=== PATIENT | male | born 1990 | race American Indian/Alaskan Native ===

== ENCOUNTER 2025-09-30 09:45 | Emergency (ER) | payer MEDICAID, SELFPAY ==
[2025-09-30 10:05] VITALS: BP 117/75; PULSE 94; RESP 15; TEMP 37; O2SAT 96; BMI 25.8
--- NOTE | 2025-09-30 10:29 | PD.EDRME ---
Rapid Medical Screening Exam [facility] Arrival date/time: 09/30/25 09:45 This is a 34-year-old male that comes into the emergency room with complaints of vomiting that started this morning. Patient denies abdominal pain diarrhea. Patient denies any past medical history. I have greeted and performed a focused initial assessment of this patient. Initial appropriate labs ordered at this time. A comprehensive ED assessment and evaluation of the patient and analysis of all test and completion of medical decision making process will be conducted by additional ED provider. Chief Complaint: Nausea/Vomiting/Diarrhea Time Seen by Provider: 09/30/25 10:23 Vital signs: Vital Signs Temperature 98.6 F 09/30/25 10:05 Pulse Rate 94 09/30/25 10:05 Respiratory Rate 15 09/30/25 10:05 Blood Pressure 117/75 09/30/25 10:05 Pulse Oximetry (%) 96 09/30/25 10:05 Oxygen Delivery Method Room Air 09/30/25 10:05 Exam: Abdominal pain diffusely breathing even and unlabored skin warm and dry Clinical Impression: Abdominal pain
[2025-09-30] MEDS: ONDANSETRON ODT 4 MG TABRAP PO ×2 (10:56→15:15)
[2025-09-30 10:57] LABS: Basophils # (Auto) 0.0 Thou/mm3 (0.0-0.2); Basophils % (Auto) 1 % (0-2.5); Eosinophils # (Auto) 0.2 Thou/mm3 (0.0-0.5); Eosinophils % (Auto) 4 % (0-10); Hematocrit 43.9 % (41.0-53.0); Hemoglobin 15.3 g/dL (13.5-16.0); Immature Granulocytes Auto 0.05 Thou/mm3 (0.00-0.00); Lymphocytes # (Auto) 1.0 Thou/mm3 (1.0-4.8); Lymphocytes % (Auto) 17 % (10-50); Mean Corpuscular HGB Conc 34.9 g/dl (31.0-37.0); Mean Corpuscular Hemoglobin 29.0 pg (25.0-35.0); Mean Corpuscular Volume 83 fL (80-100); Monocytes # (Auto) 0.4 Thou/mm3 (0.0-0.8); Monocytes % (Auto) 7 % (0-12); Neutrophils # (Auto) 4.1 Thou/mm3 (1.8-7.7); Neutrophils % (Auto) 71 % (37-80); Nucleated Red Blood Cell # 0.00 Thou/mm3 (0.00-0.00); Nucleated Red Blood Cell % 0 /100 WBC (0); Platelet Count 215 Thou/mm3 (140-440); RDW Standard Deviation 37.3 fL (35.1-43.9); Red Blood Count 5.28 Miln/mm3 (4.50-5.90); White Blood Count 5.8 Thou/mm3 (3.8-10.6)
[2025-09-30 11:20] LABS: Alanine Aminotransferase 24 U/L (10-49); Albumin, Serum 5.0 gm/dL (3.5-5.0); Albumin/Globulin Ratio 2.3 (1.2-2.2); Alkaline Phosphatase 87 U/L (46-116); Anion Gap 8 (7-16); Aspartate Amino Transferase 24 U/L (0-34); BUN/Creatinine Ratio 7 Ratio (12-20); Bilirubin,Total 0.5 mg/dL (0.3-1.2); Blood Urea Nitrogen 8 mg/dL (9-23); Calcium 9.4 mg/dL (8.3-10.6); Calcium (Corrected) 9.4 mg/dL (8.5-10.1); Carbon Dioxide 27.7 mMol/L (20.0-31.0); Chloride 105 mMol/L (98-107); Creatinine (Component) 1.1 mg/dL (0.6-1.3); Estimated Creatinine Clearance 92.4 mL/min (>60); Globulin 2.2 gm/dL (2.3-3.5); Glucose 142 mg/dL (74-106); Lipase 25 U/L (12-53); Osmolality,Calculated 281 (275-295); Potassium 3.8 mMol/L (3.4-5.1); Sodium 141 mMol/L (136-145); Total Protein 7.2 gm/dL (5.7-8.2); eGFR > 60 See Note
[2025-09-30 11:35] LABS: Influenza A Ag Negative; Influenza B Ag Negative
[2025-09-30 13:46] LABS: Collection Type, Urine Voided
[2025-09-30 14:15] LABS: Bilirubin,Urine Negative (Negative); Blood,Urine Negative (Negative); Clarity,Urine Clear (Clear/Hazy); Color,Urine Yellow (Lt Yel-Yel); Culture Indicated,Urine Not Indicated; Glucose, Urine Negative (Negative); Ketones,Urine Negative (Negative); Leukocyte Esterase,Urine Negative (Negative); Nitrite,Urine Negative (Negative); PH,Urine 6.5 (5.0-7.0); Protein,Urine Trace (Neg - Trace); RBC,Urine < 1 /hpf (0-3); Specific Gravity,Urine 1.022 (1.001-1.035); Squamous Epithelial Cell,Urine < 1 /hpf (0-5); Urobilinogen,Urine Negative mg/dL (0.0-1.0); WBC,Urine < 1 /hpf (0-5)
[2025-09-30 14:23] LABS: Sperm,Urine Present
[2025-09-30 14:50] LABS: Amphetamine/Methamp Scrn,U Negative (Negative); Barbiturate Screen,Urine Negative (Negative); Benzodiazepines Screen,Urine Negative (Negative); Benzoylecgonine Screen, Ur Negative (Negative); Fentanyl Screen,Urine Negative (Negative); Opiate Screen,Urine Negative (Negative); THC Screen,Urine Positive (Negative)
--- NOTE | 2025-09-30 14:55 | PD.EDDIZZY ---
ED Dizzyness RME/HPI General Chief Complaint: Nausea/Vomiting/Diarrhea Stated Complaint: WEAKNESS, N/V Time Seen by Provider: 09/30/25 10:23 Arrival date/time: 09/30/25 09:45 RME / HPI RME / HPI Narrative: 09/30/25 09:45 This is a 34-year-old male that comes into the emergency room with complaints of vomiting that started this morning. Patient denies abdominal pain diarrhea. Patient denies any past medical history. I have greeted and performed a focused initial assessment of this patient. Initial appropriate labs ordered at this time. A comprehensive ED assessment and evaluation of the patient and analysis of all test and completion of medical decision making process will be conducted by additional ED provider. DR. QUEVEDO MAIN ED EVALUATION: 34-year-old male presents to the Emergency Department accompanied by his mother for dizziness described as lightheadedness that began this morning around 8 AM. He reports associated nausea and four episodes of non-bloody, non?black vomiting since onset. The dizziness is worse with standing or changing position and improves somewhat when sitting or lying down. He has been able to drink water and keep it down. He denies fever, chills. No chest pain or shortness of breath. No other symptoms. He reports a recent COVID-19 infection 3 weeks ago. No known medical history just marijuana abuse. Related Data Previous Rx's ?Medication ?Instructions ?Recorded tamsulosin 0.4 mg capsule 0.4 mg PO QDAY #5 caps 03/18/23 Allergies Allergy/AdvReac Type Severity Reaction Status Date / Time No Known Allergies Allergy Verified 03/18/23 16:00 Review of Systems Review of Systems Systems Reviewed: All systems reviewed, normal except as documented Past Medical History Past Medical History PSYCHO/SOCIAL: Positive Anxiety Social History SMOKING STATUS: Never smoker SUBSTANCE USE: marijuana ALCOHOL: Never ED Exam Narrative Physical exam: GENERAL APPEARANCE: alert and oriented x 4, well-developed, well-nourished, no acute distress VITALS: All vitals were reviewed and the pulse ox is 96% on room air, which is normal according to my interpretation. HEENT: Normocephalic, atraumatic; pupils equal, round, reactive to light; EOMI; mucous membranes pink, moist; oropharynx clear NECK: Supple LUNGS: CTABL; no wheezes, no rales, no rhonchi HEART: Regular rate, regular rhythm; normal S1, S2; no murmurs ABDOMEN: non distended; normal BS; soft, no tenderness, no guarding, no rebound; no masses, no organomegaly, no hernia BACK: no CVA tenderness EXTREMITIES: atraumatic; no edema NEUROLOGIC: awake; alert and oriented x4; cranial nerves II-XII grossly intact; no focal sensory or motor deficits PSYCHIATRIC: appropriate mood and affect SKIN: warm, dry, normal color; no rashes Course Quality Measures none Orders Category Date Time Status Bedside COVID-19 Antigen Test NOW Care 09/30/25 10:31 Active CBC Stat Lab 09/30/25 10:41 Completed Comprehensive Metabolic Panel Stat Lab 09/30/25 10:41 Completed Drug Screen,Urine Stat Lab 09/30/25 13:39 Completed Influenza A & B Rapid Panel Stat Lab 09/30/25 10:41 Completed Lipase Stat Lab 09/30/25 10:41 Completed Urinalysis, C/S if Indicated Stat Lab 09/30/25 13:39 Completed Meclizine HCl [Antivert] Med 09/30/25 14:54 Discontinued 25 mg PO X1 ONE Ondansetron Odt [Zofran Odt] Med 09/30/25 10:29 Discontinued 4 mg PO X1 ONE Ondansetron Odt [Zofran Odt] Med 09/30/25 14:54 Discontinued 4 mg PO X1 ONE Vital Signs Vital signs: Vital Signs Temperature 98.6 F 09/30/25 10:05 Pulse Rate 94 09/30/25 10:05 Respiratory Rate 15 09/30/25 10:05 Blood Pressure 117/75 09/30/25 10:05 Pulse Oximetry (%) 96 09/30/25 10:05 Oxygen Delivery Method Room Air 09/30/25 10:05 Dizziness MDM Narrative MDM Narrative:: IAlmaz am scribing for and in the presence of Dr. Quevedo. Patient data External records reviewed:: [facility] previous records Clinical information provided by:: patient and parent (mother) Social determinants that could affect healthcare access:: substance use (marijuana) Patient has the following chronic illnesses:: Denies any PMHx, surgeries, daily medications, or known allergies. Marijuana use. How is presenting disease/condition affected by chronic disease/condition?: no chronic disease Evaluation data The following diagnostics were reviewed and interpreted by me:: lab results Lab and/or radiology exams considered but not ordered:: none Interpretation Summary: Positive for marijuana Medications / Prescriptions Medications or Prescriptions considered but not ordered:: none Medication administrations:: Medication Administration History Discontinued Medications Meclizine HCl (Meclizine Hcl 25 Mg Tablet) 25 mg PO X1 ONE Stop: 09/30/25 14:55 Ondansetron HCl (Ondansetron Odt 4 Mg Tabrap) 4 mg PO X1 ONE; Protocol Stop: 09/30/25 10:30 Last Admin: 09/30/25 10:56 Dose: 4 mg Documented By: SOMMER Ondansetron HCl (Ondansetron Odt 4 Mg Tabrap) 4 mg PO X1 ONE; Protocol Stop: 09/30/25 14:55 see above Consultations Consultation(s) initiated? (list below): No Diagnosis Dizziness Differential Diagnosis: other (Vertigo (likely peripheral), orthostatic hypotension, and post-viral syndrome.) Most likely diagnosis given after review of the tests above:: Vomiting Dizziness Admission Indicated Admission indicated?: not indicated Admission Request Was there a request for admission?: No Disposition Plan Disposition Plan: Discharge Discharge Attestation Discharge Attestation: The patient and all family members were given an opportunity to ask questions and understood the discharge instructions. Discharge instructions specifically effects, indications for sooner follow up or return to the emergency department, and the expected course of current diagnosis. Patient condition: Stable Discharge Plan Plan Patient Disposition: HOME (Self Care) Prescriptions/Referrals Prescriptions/Med Rec: No Action tamsulosin 0.4 mg capsule 0.4 mg PO QDAY Qty: 5 0RF Referrals: No Primary/Family,Physician [Primary Care Provider] - In 1 week Problem List Clinical Impression: Vomiting, Dizziness Patient/Caregiver Discharge Instructions Education Materials: ED Dizziness, Uncertain Cause, ED Vomiting (Adult) Print Language: Mozambican Stand Alone Forms: Crys Award Info., Patient Portal Info Letter
[2025-09-30] MEDS: MECLIZINE HCL 25 MG TABLET PO (15:14)
== END 2025-09-30 15:19 | disposition home or self-care (01) ==
PROVIDERS: Nurse Practitioner Family; Emergency Provider Emergency Medicine
DX: R11.2 Nausea with vomiting, unspecified (principal)
CPT/HCPCS: 36415; 80053; 80307; 81001; 83690; 85025; 87502; 87635; 99282; Q0162; A9270